=== PATIENT | male | born 1970 | race Caucasian/White ===

== ENCOUNTER 2023-11-02 20:54 | Outpatient (OUT) | payer OTHER, BC, SELFPAY | END 2023-11-02 20:55 | disposition home or self-care (01) | LOC: SLEEP 20:55 | PROVIDERS: PCP Family Medicine; Visit Provider Family Medicine | DX: G47.33 Obstructive sleep apnea (adult) (pediatric) (principal) | CPT/HCPCS: 95810 ==

== ENCOUNTER 2023-11-15 20:54 | Outpatient (OUT) | payer OTHER, BC, SELFPAY | END 2023-11-15 20:55 | disposition home or self-care (01) | LOC: SLEEP 20:54 | PROVIDERS: PCP Family Medicine; Visit Provider Family Medicine | DX: G47.33 Obstructive sleep apnea (adult) (pediatric) (principal) | CPT/HCPCS: 95811 ==

== ENCOUNTER 2025-03-06 11:18 | Outpatient (OUT) | payer OTHER, BC, SELFPAY ==
--- OUTSIDE RECORDS SUMMARY | 2025-03-06 11:20 | XMS_ITS | Encounter Summary ---
Author Organization [facility] Address [address] [facility] [place] [address] Care Team Providers Care Clearance Rep Name Role Phone Johanny Jj MD Primary Care Provider [phone] Princess Alcantara MOTORCYLES FINAL INSPECTOR-EQUIPMENT WASHER Unavailable Reason for Visit * Reason Comments Med Refill Encounter Details Date Type Department Care Team (Late st Contact Info) Description 03/02/2025 Refill [facility] [place] [facility] 112 [facility] 160 [place] [address] Princess Alcantara, [facility] 112 [facility] 160 [place] [address] Major depression, recurrent, chronic Social History Tobacco Use Types Packs/Day Years Used Date Smoking Tobacco: Never Smokeless Tobacco: Current Chew Alcohol Use Standard Drinks/Week Comments Yes 12 (1 standard drink = 0.6 oz pure alcohol) caffeine: 1-2 cups per day coffee, soda AUDIT-C Answer Date Recorded Q1: How often do you have a drink containing alc ohol? 2-4 times a month 12/05/2022 Q2: How many drinks containi ng alcohol do you have on a typical day when you are drinking? 1 or 2 12/05/2022 Q3: How often do you have si x or more drinks on one occasion? Weekly 12/05/2022 PHQ-2 Answer Date Recorded Patient Health Questionnaire-2 Score 0 08/09/2024 Sex and Gender Information Value Date Recorded Sex Assigned at Not on file Legal Sex Male 7:00 PM EDT Gender Identity Not on file Sexual Orientation Not on file documented as of this encounter Miscellaneous Notes * Telephone Encounter - Kira Deluca LPN - 03/06/2025 10:53 AM EDT Pt lvm [facility] 03/28 documented in this encounter Plan of Treatment Upcoming Encounters Date Type Department Care Team (Late st Contact Info) Description 03/28/2025 11:00 AM EDT Office Visit [facility] [facility] [address] [facility] 160 [place] [address] Princess Alcantara APRN-EQUIPMENT WASHER [address] [facility] 160 [place] [address] documented as of this encounter Visit Diagnoses Diagnosis Major depression, recurrent, chronic documented in this encounter Care Teams Clearance Rep Relationship Specialty Start Date End Date Johanny Jj MD PCP - General Family Medicine 01/01/23 Princess Alcantara, HYUN-EQUIPMENT WASHER [address] [facility] 160 [place] [address] Nurse Practitioner Behavioral Health 01/01/23 documented as of this encounter
--- OUTSIDE RECORDS SUMMARY | 2025-03-06 11:20 | XMS_ITS | Encounter Summary ---
Author Organization [facility] Address [address] [facility] [place] [address] Care Team Providers Care Replanting Machine Operator Name Role Phone Johanny Jj MD Primary Care Provider [phone] Princess Alcantara CANOE BUILDER-RN BURN Unavailable Reason for Visit * Reason Comments Med Refill Encounter Details Date Type Department Care Team (Late st Contact Info) Description 09/19/2023 Refill [facility] 112 [facility] 160 [place] [address] Princess Alcantara, [facility] 112 [facility] 160 [place] [address] Major depression, recurrent, chronic Social History Tobacco Use Types Packs/Day Years Used Date Smoking Tobacco: Never Smokeless Tobacco: Current Chew Alcohol Use Standard Drinks/Week Comments Yes 0 (1 standard drink = 0.6 oz pure [...] Date Recorded Patient Health Questionnaire-2 Score 0 08/26/2023 Sex and Gender Information Value Date Recorded Sex Assigned at Not on file Legal Sex Male 7:00 PM EDT Gender Identity Not on file Sexual Orientation Not on file documented as of this encounter Plan of Treatment Upcoming Encounters Date Type Department Care Team (Late st Contact Info) Description 03/28/2025 11:00 AM EDT Office Visit [facility] [place] [facility] 112 [facility] 160 [place] [address] Princess Alcantara APRN-RN BURN 112 [facility] 160 [place] [address] documented as of this encounter Visit Diagnoses Diagnosis Major depression, recurrent, chronic documented in this encounter Care Teams Replanting Machine Operator Relationship Specialty Start Date End Date Johanny Jj MD PCP - General Family Medicine 01/01/23 Princess Alcantara, CANOE BUILDER-RN BURN 112 [facility] 160 [place] [address] Nurse Practitioner Behavioral Health 01/01/23 documented as of this encounter
--- OUTSIDE RECORDS SUMMARY | 2025-03-06 11:20 | XMS_ITS | Encounter Summary ---
Author Organization [facility] Address [address] [facility] [place] [address] Care Team Providers Care Photographer Name Role Phone Johanny Jj MD Primary Care Provider [phone] Princess Alcantara CORPORATE PILOT-VETERINARY MICROBIOLOGIST Unavailable Reason for Visit * Reason Comments Med Refill Encounter Details Date Type Department Care Team (Late st Contact Info) Description 12/03/2023 Refill [facility] 112 [facility] 160 [place] [address] Princess Alcantara, [facility] 112 [facility] 160 [place] [address] Major depression, recurrent, chronic Social History Tobacco [...] Office Visit [facility] [facility] 112 [facility] 160 [place] [address] Princess Alcantara APRN-VETERINARY MICROBIOLOGIST 112 [facility] 160 [place] [address] documented as of this encounter Visit Diagnoses Diagnosis Major depression, recurrent, chronic documented in this encounter Care Teams Photographer Relationship Specialty Start Date End Date Johanny Jj MD PCP - General Family Medicine 01/01/23 Princess Alcantara, CORPORATE PILOT-VETERINARY MICROBIOLOGIST 112 [facility] 160 [place] [address] Nurse Practitioner Behavioral Health 01/01/23 documented as of this encounter
--- OUTSIDE RECORDS SUMMARY | 2025-03-06 11:20 | XMS_ITS | Encounter Summary ---
Author Organization [facility] Address [address] [facility] [place] [address] Care Team Providers Care Emergency Room Doctor Name Role Phone Johanny Jj MD Primary Care Provider [phone] Princess Alcantara DAIRY FEED MIXING OPERATOR-GEAR TECHNICIAN Unavailable Reason for Visit * Reason Comments Med Refill Encounter Details Date Type Department Care Team (Late st Contact Info) Description 02/05/2023 Refill [facility] [place] [facility] [address] [facility] [address] [place] [address] Princess Alcantara, DAIRY FEED MIXING OPERATOR-GEAR TECHNICIAN [address] [facility] 160 [place] [address] Major depression, recurrent, chronic Social History Tobacco Use Types Packs/Day Years Used Date Smoking Tobacco: Never Alcohol Use Standard Drinks/Week Comments Yes 0 (1 standard drink = 0.6 oz pur e alcohol) AUDIT-C Answer Date Recorded Q1: How often do you have a drink containing alc ohol? 2-4 times a month 12/05/2022 Q2: How many drinks containi ng alcohol do you have on a typical day when you are drinking? 1 or 2 12/05/2022 Q3: How often do you have si x or more drinks on one occasion? Weekly 12/05/2022 Sex and Gender Information Value Date Recorded Sex Assigned at Not on file Legal Sex Male 7:00 PM EDT Gender Identity Not on file Sexual Orientation Not on file COVID-19 Exposure Response Date Recorded In the last 10 days, have yo u been in contact with someone who was confirmed or suspected to have Coronavirus/COVID-19? No / Unsure 01/11/2023 11:56 AM EDT documented as of this encounter Plan of Treatment Upcoming Encounters Date Type Department Care Team (Late st Contact Info) Description 03/28/2025 11:00 AM EDT Office Visit [facility] [facility] 112 [facility] 160 [place] [address] Princess Alcantara APRN-GEAR TECHNICIAN 112 [facility] 160 [place] [address] documented as of this encounter Visit Diagnoses Diagnosis Major depression, recurrent, chronic documented in this encounter Care Teams Emergency Room Doctor Relationship Specialty Start Date End Date Johanny Jj MD PCP - General Family Medicine 01/01/23 Princess Alcantara APRN-GEAR TECHNICIAN [address] [address] Nurse Practitioner Behavioral Health 01/01/23 documented as of this encounter
--- OUTSIDE RECORDS SUMMARY | 2025-03-06 11:20 | XMS_ITS | Encounter Summary ---
Author Organization [facility] Address [address] [place] [address] Care Team Providers Care Imaging Technician Name Role Phone Johanny Jj MD Primary Care Provider [phone] Princess Alcantara EPIDEMIOLOGIST-FORENSIC ARTIST Unavailable Reason for Visit * Reason Comments Med Refill Encounter Details Date Type Department Care Team (Late st Contact Info) Description 08/21/2023 Refill [facility] 112 [facility] 160 [place] [address] Princess Alcantara, [facility]ID[facility]IOLOGIST-[facility] 112 [facility] 160 [place] [address] Major depression, recurrent, chronic Social History Tobacco [...] Date Recorded Patient Health Questionnaire-2 Score 0 05/26/2023 Sex and Gender Information Value Date Recorded Sex Assigned at Not on file Legal Sex Male 7:00 PM EDT Gender Identity Not on file Sexual Orientation Not on file documented as of this encounter Plan of Treatment Upcoming Encounters Date Type Department Care Team (Late st Contact Info) Description 03/28/2025 11:00 AM EDT Office Visit [facility] [place] [facility] 112 [facility] [address] [place] [address] Princess Alcantara APRN-FORENSIC ARTIST 112 [facility] 160 [place] [address] documented as of this encounter Visit Diagnoses Diagnosis Major depression, recurrent, chronic documented in this encounter Care Teams Imaging Technician Relationship Specialty Start Date End Date Johanny Jj MD PCP - General Family Medicine 01/01/23 Princess Alcantara, EPIDEMIOLOGIST-FORENSIC ARTIST 112 [facility] 160 [place] [address] Nurse Practitioner Behavioral Health 01/01/23 documented as of this encounter
--- OUTSIDE RECORDS SUMMARY | 2025-03-06 11:20 | XMS_ITS | Clinical Summary ---
Author Organization [employer] [facility] tem Address [id number] [address] [place] [address] Care Team Providers Care Meter Shop Supervisor Name Role Phone No Pcp, No Pcp Primary Care Provider Unavailabl e Social History Tobacco Use Types Packs/Day Years Used Date Smoking Tobacco: Never Assessed Childcare Answer Date Recorded Childcare Unknown 01/04/2019 Employment Answer Date Recorded Employment Unknown 01/04/2019 Purpose - Life Answer Date Recorded Purpose and direction in life Unknown Sex and Gender Information Value Date Recorded Sex Assigned at Not on file Legal Sex Male 1:53 PM EST Gender Identity Not on file Sexual Orientation Not on file Plan of Treatment Health Maintenance Due Date Last Done Comments Depression Screening 1984 Tobacco Screening 1984 Adult BMI Screening 02/17/1990 DTaP,Tdap and Td Vaccines (1 - Tdap) 02/17/1991 Zoster (Shingles) Vaccine (1 of 2) 02/17/2022 Influenza Vaccine 03/26/2025 Medical Devices Not on file Care Teams Meter Shop Supervisor Relationship Specialty Start Date End Date No Pcp, [place] [address] PCP - General Family Medicine 10/04/18
--- OUTSIDE RECORDS SUMMARY | 2025-03-06 11:20 | XMS_ITS | Clinical Summary ---
Author Organization [facility] Address [address] [place] [address] Care Team Providers Care Operations Associate Name Role Phone Johanny Jj MD Primary Care Provider [phone] Princess Alcantara FLYER REPAIRER-MORTGAGE BANKER Unavailable Allergies No known active allergies Medications pregabalin (Lyrica) 225 MG capsule Take 225 mg by mouth in the morning and 225 mg before bedtime. Active lisinopril-hydr oCHLOROthiazide 10-12.5 MG tablet Take 1 tablet by mouth Daily Active atorvastatin (Lipitor) 10 MG tablet Take 10 mg by mouth Daily Active cholecalciferol (Vitamin D-3) 50 MCG (1999) tablet Take 50 mcg by mouth Daily 3 Active testosterone cypionate (Depo-Testoster one) 200 MG/ML injection Inject 200 mg into the shoulder, thigh, or buttocks every 14 (fourteen) days Active lurasidone (Latuda) 40 MG tabletIndicatio ns:Major depression, recurrent, chronic Take 1 tablet (40 mg) by mouth in the evening. Take with meals 30 tablet 2 5 Active DULoxetine (Cymbalta) [address] capsuleIndicati ons:Major depression, recurrent, chronic Take 1 capsule (60 mg) by mouth Daily 30 capsule 1 5 05/05/20 25 Active DULoxetine (Cymbalta) [address] capsuleIndicati ons:Major depression, recurrent, chronic Take 1 capsule (60 mg) by mouth Daily 30 capsule 2 5 03/06/20 25 Discontinu ed(Reorder ) Active Problems Problem Noted Date Diagnosed Date Insomnia 12/05/2022 Major depression, recurrent, chronic 12/05/2022 JORJE (generalized anxiety disorder) 12/05/2022 Encounters Date Type Department Care Team Description 03/02/2025 Refill [facility] [facility] [address] [facility] [address] [place] [address] Jaelyn-Princess Rodas, FLYER REPAIRER-MORTGAGE BANKER Major depression, recurrent, chronic from Last 3 Months Family History Medical History Relation Name Comments Depression Daughter Depression Father Wallace Diabetes Father Wallace Hypertension Father Wlalace Cancer Mother Rossana Depression Mother Rossana Stroke Paternal Grandfather Brother Stroke Sibling Relation Name Status Comments Daughter Father Wallace Alive Mother Rossana Alive Paternal Grandfather Brother Sibling Social History Tobacco Use Types Packs/Day Years Used Date Smoking Tobacco: Never Smokeless Tobacco: Current Chew Tobacco Cessation:Ready to Q uit: Not Asked; Counseling Given: Not Answered Alcohol Use Standard Drinks/Week Comments Yes 12 [...] on file Sexual Orientation Not on file Last Filed Vital Signs Vital Sign Reading Time Taken Comments Blood Pressure 142/74 11/22/2024 11:18 AM EDT Pulse 93 11/22/2024 11:18 AM EDT Temperature - - Respiratory Rate - - Oxygen Saturation - - Inhaled Oxygen Concentration - - Weight 142 kg (313 lb) 11/22/2024 11:18 AM EDT Height 180.3 cm (5' 11 ) 03/29/2024 9:01 AM EDT Body Mass Index 43.65 03/29/2024 9:01 AM EDT Plan of Treatment Upcoming Encounters Date Type Department Care Team (Late st Contact Info) Description 03/28/2025 11:00 AM EDT Office Visit [facility] [facility] 112 [facility] 160 [place] [address] Princess Alcantara, FLYER REPAIRER-MORTGAGE BANKER 112 [facility] 160 [place] [address] Insurance [employer] Care Teams Operations Associate Relationship Specialty Start Date End Date Johanny Jj MD PCP - General Family Medicine 01/01/23 Princess Alcantara, FLYER REPAIRER-MORTGAGE BANKER 112 [facility] 160 [place] [address] Nurse Practitioner Behavioral Health 01/01/23
--- OUTSIDE RECORDS SUMMARY | 2025-03-06 11:20 | XMS_ITS | Patient Health Record ---
Author Organization [facility] Address [address] [place] [address] Care Team Providers Care Polls Or Surveys Interviewer Name Role Phone Johanny Jj Primary Care Provider Unavailabl e Allergies No Known Allergies Reason For Referral No Information Medications Medication SIG (Take, Route, Frequency, Duration) Notes Start Date End Date Status Acetaminophen 325 MG 1 tablet as needed Orally every 4 hrs Active Ibuprofen 200 MG 1 capsule with food or milk as needed Orally Three times a day Active Latuda 60 MG 1 tablet in the even ing with food Orally Once a day Active Vitamin D 50 MCG (1999 [place]) 1 tablet Oral ly Once a day Active Tamsulosin HCl 0.4 MG 1 capsule Orally O nce a day Active tiZANidine HCl 4 MG 1 tablet as needed Orally Three times a day Active Lyrica 225 MG 1 capsule in the félix katerina 1 to 3 hours before bedtime Orally Once a day Active DULoxetine HCl 60 MG 1 capsule Orally On ce a day Active Atorvastatin Calcium 10 MG 1 tablet Oral ly Once a day Active Lisinopril-hydroCHLOROthiazi de 10-12.5 MG 1 tablet Orally Once a day Active Social History Tobacco Use: Social History Observation Description Date Details (start date - stop date) Unknown Tobacco Use/Smoking Question Answer Notes Patient is a Uses tobacco in other forms Additional Findings: Tobacco User Chews fine cut tobacco Problems Problem Type SNOMED Code ICD Code Onset Dates Problem Status W/U Status Risk Notes Problem 23534026 Stress reaction of left foot, initial encounter (M84.375A) Active confirmed Problem [id number] 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) Active confirmed Problem 185130066 Metatarsal stress fracture of right foot with delayed healing (M84.374G) Active confirmed Plan Of Treatment No Information Insurance Providers Payer Name Payer Address Payer Phone Subscriber Number Group Number Insured Name Patient Relationship to Insured Coverage Start Date Coverage End Date MMO [address] [place], [place] [id number] Arsenio Vela Self - patient is the insured [employer] PPO PLUS LOCAL PLAN [address] [place] [address] [id number] Dilcia Vela Spouse - patient is the spouse of the insured Medical (General) History Medical History History ICD Code hypertension Surgical History Surgery Date(Month/Year) Right foot 5th MT ORIF nonun ion, lateral displacement calcaneal osteotomy, HWR, harvest of calcaneal bone graft 04/26/2020 left knee replacement 2018
--- OUTSIDE RECORDS SUMMARY | 2025-03-06 11:20 | XMS_ITS | Encounter Summary ---
Author Organization [facility] Address [address] [place] [address] Care Team Providers Care Refrigerating Engineer Head Name Role Phone Johanny Jj MD Primary Care Provider [phone] Princess Alcantara ESCALATOR ATTENDANT-FILLING MIXER Unavailable Reason for Visit * Reason Comments Med Refill Encounter Details Date Type Department Care Team (Late st Contact Info) Description 08/15/2023 Refill [facility] 112 [facility] 160 [place] [address] Princess Alcantara, ESCALATOR ATTENDANT-[facility] 112 [facility] 160 [place] [address] Major depression, recurrent, chronic Social History Tobacco [...] Office Visit [facility] [place] [facility] 112 [facility] [address] [place] [address] Princess Alcantara APRN-FILLING MIXER 112 [facility] 160 [place] [address] documented as of this encounter Visit Diagnoses Diagnosis Major depression, recurrent, chronic documented in this encounter Care Teams Refrigerating Engineer Head Relationship Specialty Start Date End Date Johanny Jj MD PCP - General Family Medicine 01/01/23 Princess Alcantara, ESCALATOR ATTENDANT-FILLING MIXER 112 [facility] 160 [place] [address] Nurse Practitioner Behavioral Health 01/01/23 documented as of this encounter
--- OUTSIDE RECORDS SUMMARY | 2025-03-06 11:20 | XMS_ITS | Encounter Summary ---
Author Organization [facility] Address [address] [facility] [place] [address] Care Team Providers Care Psych Arnp Name Role Phone Johanny Jj MD Primary Care Provider [phone] Princess Alcantara RN ACUTE-GOVERNMENT AUDITOR Unavailable Encounter Details Date Type Department Care Team (Late st Contact Info) Description 05/07/2023 Abstract [facility] Medicine [address] [place] [id number] Marli Mcguire NP [address] [place] [address] Social History Tobacco Use Types Packs/Day Years Used Date Smoking Tobacco: Never Smokeless Tobacco: Never Alcohol Use Standard Drinks/Week Comments [...] suspected to have Coronavirus/COVID-19? No / Unsure 05/06/2023 10:19 AM EDT documented as of this encounter Plan of Treatment Upcoming Encounters Date Type Department Care Team (Late st Contact Info) Description 03/28/2025 11:00 AM EDT Office Visit [facility] [place] [facility] [address] [facility] [address] [place] [address] Princess Alcantara, RN ACUTE-GOVERNMENT AUDITOR 112 [facility] 160 [place] [address] documented as of this encounter Visit Diagnoses Not on filedocumented in this encounter Care Teams Psych Arnp Relationship Specialty Start Date End Date oJhanny Jj MD PCP - General Family Medicine 01/01/23 Princess Alcantara, RN ACUTE-GOVERNMENT AUDITOR 112 [facility] [address] [place] [address] Nurse Practitioner Behavioral Health 01/01/23 documented as of this encounter
== END 2025-03-06 11:19 | disposition home or self-care (01) ==
LOC: PST 11:18
PROVIDERS: PCP Family Medicine; Visit Provider Urology
DX: R97.20 Elevated prostate specific antigen [PSA] (principal)

== ENCOUNTER 2025-03-08 10:51 | Day surgery (SDC) | payer OTHER, SELFPAY ==
--- OUTSIDE RECORDS SUMMARY | 2025-03-08 10:55 | XMS_ITS | Clinical Summary ---
Author Organization [facility] Healthcare Address [address] [place] [address] Care Team Providers Care Director Of Distribution Name Role Phone Johanny Jj MD Primary Care Provider [phone] Princess Alcantara FOOD COOKING MACHINE OPERATOR-FACULTY I ON CALL MEDICAL ASSISTANT Unavailable Allergies No known active allergies Medications [...] [facility] [place] [facility] [address] [facility] [address] [place] [address] Jaelyn-Princess Rodas, FOOD COOKING MACHINE OPERATOR-FACULTY I ON CALL MEDICAL ASSISTANT Major depression, recurrent, chronic from Last 3 Months Family History Medical History Relation Name Comments Depression Daughter Depression Father Wallace Diabetes Father Wallace Hypertension Father Wallace Cancer Mother Rossana Depression Mother Rossana Stroke [...] Office Visit [facility] [place] [facility] 112 [facility] 160 [place] [address] Princess Alcantara, FOOD COOKING MACHINE OPERATOR-FACULTY I ON CALL MEDICAL ASSISTANT 112 [facility] 160 [place] [address] Insurance [employer] Care Teams Director Of Distribution Relationship Specialty Start Date End Date Johanny Jj MD PCP - General Family Medicine 01/01/23 Princess Alcantara, FOOD COOKING MACHINE OPERATOR-FACULTY I ON CALL MEDICAL ASSISTANT 112 [facility] 160 [place] [address] Nurse Practitioner Behavioral Health 01/01/23
--- OUTSIDE RECORDS SUMMARY | 2025-03-08 10:55 | XMS_ITS | Encounter Summary ---
Author Organization [facility] Address [address] [facility] [place] [address] Care Team Providers Care Rn Medical Inpatient Services Name Role Phone Johanny Jj MD Primary Care Provider [phone] Princess Alcantara METALLOGRAPHER-CHARGING OPERATOR Unavailable Reason for Visit * Reason Comments Med Refill Encounter Details Date Type Department Care Team (Late st Contact Info) Description 03/02/2025 Refill [facility] [place] [facility] 112 [facility] 160 [place] [address] Princess Alcantara, [facility] 112 [facility] 160 [place] [address] Major depression, recurrent, chronic Social History Tobacco [...] Office Visit [facility] [place] [facility] [address] [facility] 160 [place] [address] Princess Alcantara APRN-CHARGING OPERATOR [address] [facility] [address] [place] [address] documented as of this encounter Visit Diagnoses Diagnosis Major depression, recurrent, chronic documented in this encounter Care Teams Rn Medical Inpatient Services Relationship Specialty Start Date End Date Johanny Jj MD PCP - General Family Medicine 01/01/23 Princess Alcantara, HYUN-CHARGING OPERATOR [address] [facility] [address] [place] [address] Nurse Practitioner Behavioral Health 01/01/23 documented as of this encounter
--- OUTSIDE RECORDS SUMMARY | 2025-03-08 10:55 | XMS_ITS | Encounter Summary ---
Author Organization [facility] Address [address] [place] [address] Care Team Providers Care Lab Rep Name Role Phone Johanny Jj MD Primary Care Provider [phone] Princess Alcantara DOCK OR PIER LABORER-INSIDE TESTER Unavailable Reason for Visit * Reason Comments Med Refill Encounter Details Date Type Department Care Team (Late st Contact Info) Description 12/03/2023 [facility]ill [facility] 112 [facility] [address] [place] [address] Princess Alcantara, [facility] 112 [facility] 160 [place] [address] Major depression, recurrent, chronic Social History Tobacco [...] Office Visit [facility] [place] [facility] 112 [facility] 160 [place] [address] Princess Alcantara APRN-INSIDE TESTER 112 [facility] 160 [place] [address] documented as of this encounter Visit Diagnoses Diagnosis Major depression, recurrent, chronic documented in this encounter Care Teams Lab Rep Relationship Specialty Start Date End Date Johanny Jj MD PCP - General Family Medicine 01/01/23 Princess Alcantara, DOCK OR PIER LABORER-INSIDE TESTER 112 [facility] 160 [place] [address] Nurse Practitioner Behavioral Health 01/01/23 documented as of this encounter
--- OUTSIDE RECORDS SUMMARY | 2025-03-08 10:55 | XMS_ITS | Encounter Summary ---
Author Organization [facility] Address [address] [facility] [place] [address] Care Team Providers Care Tailor Fitter Name Role Phone Johanny Jj MD Primary Care Provider [phone] Princess Alcantara APRN-MILLWORK ESTIMATOR Unavailable Encounter Details Date Type Department Care Team (Late st Contact Info) Description 05/07/2023 Abstract [facility] Medicine [address] [place] [id number] Marli Mcguire NP [address] [place] [address] Social History Tobacco Use Types [...] Office Visit [facility] [place] [facility] 112 [facility] [address] [place] [address] Princess Alcantara, BIOCHEMISTRY TECHNOLOGIST-MILLWORK ESTIMATOR 112 [facility] 160 [place] [address] documented as of this encounter Visit Diagnoses Not on filedocumented in this encounter Care Teams Tailor Fitter Relationship Specialty Start Date End Date Johanny Jj MD PCP - General Family Medicine 01/01/23 Princess Alcantara, BIOCHEMISTRY TECHNOLOGIST-MILLWORK ESTIMATOR 112 [facility] [address] [place] [address] Nurse Practitioner Behavioral Health 01/01/23 documented as of this encounter
--- OUTSIDE RECORDS SUMMARY | 2025-03-08 10:55 | XMS_ITS | Encounter Summary ---
Author Organization [facility] Address [address] [place] [address] Care Team Providers Care Administration Internship Name Role Phone Johanny Jj MD Primary Care Provider [phone] Princess Alcantara CUSTOMER CARE AGENT-CHANNEL LAYER Unavailable Reason for Visit * Reason Comments Med Refill Encounter Details Date Type Department Care Team (Late st Contact Info) Description 08/21/2023 Refill [facility] 112 [facility] 160 [place] [address] Princess Alcantara, [facility] 112 [facility] 160 [place] [address] Major depression, recurrent, chronic Social History Tobacco [...] Office Visit [facility] [place] [facility] 112 [facility] [address] [place] [address] Princess Alcantara APRN-CHANNEL LAYER 112 [facility] 160 [place] [address] documented as of this encounter Visit Diagnoses Diagnosis Major depression, recurrent, chronic documented in this encounter Care Teams Administration Internship Relationship Specialty Start Date End Date Johanny Jj MD PCP - General Family Medicine 01/01/23 Princess Alcantara, CUSTOMER CARE AGENT-CHANNEL LAYER 112 [facility] 160 [place] [address] Nurse Practitioner Behavioral Health 01/01/23 documented as of this encounter
--- OUTSIDE RECORDS SUMMARY | 2025-03-08 10:55 | XMS_ITS | Encounter Summary ---
Author Organization [facility] Address [address] [facility] [place] [address] Care Team Providers Care Aircraft Maintenance Supervisor Name Role Phone Johanny Jj MD Primary Care Provider [phone] Princess Alcantara COMPUTER ANIMATOR-WARE SERVER Unavailable Reason for Visit * Reason Comments Med Refill Encounter Details Date Type Department Care Team (Late st Contact Info) Description 02/05/2023 Refill [facility] [address] [facility] [address] [place] [address] Princess Alcantara, COMPUTER ANIMATOR-WARE SERVER [address] [facility] 160 [place] [address] Major depression, recurrent, chronic Social History Tobacco [...] Visit [facility] [place] [facility] [address] [facility] 160 [place] [address] Princess Alcantara APRN-WARE SERVER 112 [facility] 160 [place] [address] documented as of this encounter Visit Diagnoses Diagnosis Major depression, recurrent, chronic documented in this encounter Care Teams Aircraft Maintenance Supervisor Relationship Specialty Start Date End Date Johanny Jj MD PCP - General Family Medicine 01/01/23 Princess Alcantara APRN-WARE SERVER [address] [address] Nurse Practitioner Behavioral Health 01/01/23 documented as of this encounter
--- OUTSIDE RECORDS SUMMARY | 2025-03-08 10:55 | XMS_ITS | Clinical Summary ---
Author Organization [employer] [facility] tem Address [id number] [address] [place] [address] Care Team Providers Care Senior Db2 Systems Programmer Name Role Phone No Pcp, No Pcp [...] Medical Devices Not on file Care Teams Senior Db2 Systems Programmer Relationship Specialty Start Date End Date No Pcp, [place] [address] PCP - General Family Medicine 10/04/18
--- OUTSIDE RECORDS SUMMARY | 2025-03-08 10:55 | XMS_ITS | Encounter Summary ---
Author Organization [facility] Address [address] [place] [address] Care Team Providers Care Shop Tailor Name Role Phone Johanny Jj MD Primary Care Provider [phone] Princess Alcantara MIXING TANK OPERATOR-MAINTENANCE SERVICES DISPATCHER Unavailable Reason for Visit * Reason Comments Med Refill Encounter Details Date Type Department Care Team (Late st Contact Info) Description 09/19/2023 Refill [facility] 112 [facility] 160 [place] [address] Princess Alcantara, [facility] 112 [facility] 160 [place] [address] Major depression, recurrent, chronic Social History Tobacco [...] Office Visit [facility] [place] [facility] 112 [facility] [address] [place] [address] Princess Alcantara APRN-MAINTENANCE SERVICES DISPATCHER 112 [facility] [address] [place] [address] documented as of this encounter Visit Diagnoses Diagnosis Major depression, recurrent, chronic documented in this encounter Care Teams Shop Tailor Relationship Specialty Start Date End Date Johanny Jj MD PCP - General Family Medicine 01/01/23 Princess Alcantara, MIXING TANK OPERATOR-MAINTENANCE SERVICES DISPATCHER [address] [facility] [address] [place] [address] Nurse Practitioner Behavioral Health 01/01/23 documented as of this encounter
--- OUTSIDE RECORDS SUMMARY | 2025-03-08 10:55 | XMS_ITS | Encounter Summary ---
Author Organization [facility] Address [address] [place] [address] Care Team Providers Care Life Insurance Sales Name Role Phone Johanny Jj MD Primary Care Provider [phone] Princess Alcantara VOLUNTEER SERVICES MANAGER-CORE COMPOSER FEEDER Unavailable Reason for Visit * Reason Comments Med Refill Encounter Details Date Type Department Care Team (Late st Contact Info) Description 08/15/2023 Refill [facility] [address] [facility] 160 [place] [address] Princess Alcantara, VOLUNTEER SERVICES MANAGER-[facility] [address] [facility] 160 [place] [address] Major depression, recurrent, chronic Social History Tobacco [...] Visit [facility] [place] [facility] [address] [facility] [address] [place] [address] Princess Alcantara APRN-CORE COMPOSER FEEDER [address] [facility] [address] [place] [address] documented as of this encounter Visit Diagnoses Diagnosis Major depression, recurrent, chronic documented in this encounter Care Teams Life Insurance Sales Relationship Specialty Start Date End Date Johanny Jj MD PCP - General Family Medicine 01/01/23 Princess Alcantara, VOLUNTEER SERVICES MANAGER-CORE COMPOSER FEEDER [address] [facility] 160 [place] [address] Nurse Practitioner Behavioral Health 01/01/23 documented as of this encounter
[2025-03-08 11:14] VITALS: BP 150/88; PULSE 88; TEMP 36.1; O2SAT 96
[2025-03-08] MEDS: GENTAMICIN SULFATE 80 MG/2 ML VIAL 120 MG IM (11:18)
[2025-03-08] MEDS: LIDOCAINE 2% JELLY 20 ML UR (12:52)
[2025-03-08] MEDS: LIDOCAINE HCL 1% 100 MG/10 ML MDV INJ ×2 (12:54→12:58)
--- NOTE | 2025-03-08 13:11 | PM.URSON ---
Urology Surgery Operative Note Operative Note Procedure Date: 03/08/25 Time Out Performed: yes Pre-op Diagnosis: 1. Elevated PSA. 2. PI-RADS 4 prostate MRI lesion Post-op Diagnosis: same as pre-op Procedures performed: 1. Transrectal prostate MRI fusion biopsies Anesthesia: local and other (Saida- prostatic block) Primary Surgeon: Mazin Phelps Complications: None Estimated blood loss (mL): 10 Findings: No evidence of concerning hypoechoic areas Specimens: 1. 6 separate biopsies from the area of interest. These are sent separately labeled area of interest. 2. 6 mapped out biopsies from the left side and 6 mapped out biopsies from the right side. Indications for Procedures: This 55-year-old gentleman has an elevated PSA of 3.4 and a PI-RADS 4 lesion on prostate MRI. He now presents for transrectal prostate MRI fusion biopsies. He has signed an informed consent after risks were explained. Some of these risks include bleeding, infection, urosepsis and anesthesia to name a few. Detailed description of Procedure: The patient was kept on the [place] bed and brought into the operating room. He was rotated in the left lateral decubitus position. Timeout was done by all parties in the room. We all agreed upon the patient's identification and the planned procedures for this patient. I started by passing Betadine soaked stick sponges per rectum and swabbing his rectum several times. I then placed 2% lidocaine gel per rectum. The [employer] ultrasound probe was then passed per rectum. The prostate was scanned in the transverse and sagittal views. Segmentation was then done so as to fuse the MRI images onto the live ultrasound. I then used 1% plain lidocaine and did a standard Saida-prostatic block. We identified the area of interest and lined this up and then took direct sampling biopsies from this area. We took a total of 6 biopsies from this area and they were all sent together labeled area of interest. I then did mapped out biopsies from the left side starting at the base going towards the apex. 6 cores were obtained and sent. I then did 6 more mapped out biopsies from the right side in a standard fashion. The probe was then removed. He was then discharged to home.
== END 2025-03-08 13:17 | disposition home or self-care (01) ==
LOC: SURGOUT 10:53
PROVIDERS: PCP Family Medicine; Visit Provider Urology
PROC: (CPT 55700; principal; 2025-03-08 11:30)
DX: R97.20 Elevated prostate specific antigen [PSA] (principal); N42.9 Disorder of prostate, unspecified; N40.0 Benign prostatic hyperplasia without lower urinary tract symptoms; F32.A Depression, unspecified; G47.30 Sleep apnea, unspecified; E78.5 Hyperlipidemia, unspecified; F41.9 Anxiety disorder, unspecified; N52.9 Male erectile dysfunction, unspecified; M19.90 Unspecified osteoarthritis, unspecified site; F17.220 Nicotine dependence, chewing tobacco, uncomplicated
CPT/HCPCS: 55700; J1580